=== PATIENT | male | born 1995 | race Caucasian/White ===

== ENCOUNTER 2022-07-18 16:34 | Emergency (ER) | payer BC, MEDICAID, SELFPAY ==
[2022-07-18 16:44] VITALS: BP 166/71; PULSE 71; RESP 16; TEMP 36.4; O2SAT 99; BMI 18.8
--- NOTE | 2022-07-18 16:50 | USR_ITS ---
PROCEDURE INFORMATION: Exam: US Scrotum Exam date and time: 07/18/2022 5:19 PM Age: 27 years old Clinical indication: Scrotum pain; Additional info: Testicular pain TECHNIQUE: Imaging protocol: Real-time ultrasound of the scrotum and contents with color Doppler and image documentation. COMPARISON: No relevant prior studies available. FINDINGS: Right testicle: 2 small echogenic foci likely representing microlithiasis.. Remainder of the right testicle is unremarkable. No torsion. Normal vascular flow. Left testicle: Normal. No mass. No torsion. Normal vascular flow. Epididymides: Normal. Scrotum/soft tissues: Normal. US/US scrotum [id number] IMPRESSION: 1. Normal left testicular ultrasound exam. 2. 2 small degenerative foci right testicle likely representing minimal microlithiasis
--- NOTE | 2022-07-18 16:56 | ED_ITS ---
HPI - Male Genitourinary General: Chief complaint: Urogenital-Male Stated complaint: testicular pain Time Seen by Provider: 07/18/22 16:56 History of Present Illness: Mr. Bowen is a 27-year-old gentleman presenting to the emergency department for testicular pain. He reports onset approximately 3 days ago and started while lifting. He reports essentially constant pain since then. Has difficulty describing if it is left or right. Denies urinary symptoms or other GI symptoms. Mild radiation to the suprapubic region. Intensity symptoms is moderate to severe. Course has persisted. No other specific changes in health, exacerbating, or alleviating factors identified. Onset (ago): day(s) Duration: constant Location: right testicle and left testicle Severity: moderate Quality: aching Relieving factors: none Exacerbating factors: palpation and movement Context: lifting Review of Systems General: Reports: 10 or more systems reviewed and unremarkable except in HPI and below PFSH ED PFSH: Medical History History of abdominal hernia Surgical History No significant past surgical history Physical Exam Const: COMMON NORMALS: alert GENERAL APPEARANCE: cooperative and well developed HENMT: COMMON NORMALS: normocephalic and atraumatic HEAD & SCALP: normocephalic and atraumatic Eye: COMMON NORMALS: conjunctivae normal CONJUNCTIVA: Yes conjunctivae normal SCLERA: sclerae normal Neck/C-Spine: COMMON NORMALS: supple GENERAL: Yes trachea midline Resp: COMMON NORMALS: clear to auscultation bilaterally EFFORT & INSPECTION: Yes able to speak in complete sentences AUSCULTATION: clear to auscultation bilaterally Cardio: COMMON NORMALS: regular rate and regular rhythm RATE: regular rate RHYTHM: regular rhythm GI: COMMON NORMALS: Soft to palpation PALPATION: Yes Soft to palpation, Yes Tenderness to palpation present (GI) (Mild suprapubic), No Guarding due to palpation present (GI) and No Rigid due to palpation : PENIS: normal penis TESTES: Yes testicular lie normal, Yes testicular tenderness (Left greater than right) Testicular tenderness laterality: bilateral, No testicular mass, Yes epididymal tenderness (Left) and No high- riding testicle OTHER: No skin lesions. No palpable hernias however there is tenderness in the left inguinal region. Extremity: GENERAL: Yes normal exam except as noted and No edema Neuro: COMMON NORMALS: moves all extremities SENSORIUM/ORIENTATION: Yes alert and No Orientation impaired Psych: COMMON NORMALS: mental status grossly normal and Normal thought process present THOUGHT PROCESS: Normal thought process present Course Vital Signs: Vital signs: Vital Signs Temperature 98.1 F 07/18/22 17:26 Pulse Rate 94 07/18/22 17:26 Respiratory Rate 24 H 07/18/22 17:26 Blood Pressure 149/99 07/18/22 17:26 Pulse Oximetry 95 07/18/22 17:26 Oxygen Delivery Me thod 07/18/22 17:26 MDM - Male Medical Decision Making 27-year-old gentleman presenting with 3-day history of testicular pain. Exam as above. Labs with no evidence of urinary tract infection. Scrotal ultrasound essentially unremarkable. Given continued symptoms and somewhat indeterminate physical exam in the context of provided clinical history of lifting CT pelvis warranted anticipated for hernia. There is bladder wall thickening though without evidence of urinary tract infection this is somewhat unclear in etiology. Patient proved with analgesia and antiemetic. Most likely etiology of patient's symptoms is unspecified testicular and groin pain, possibly musculoskeletal in nature. The results of ED evaluation were discussed with the patient including prescriptions and/or symptomatic cares (if applicable) including appropriate and responsible use, followup plan, and return precautions. The patient verbalized understanding and felt safe for discharge. Medical Records I reviewed the patient's medical records. Lab Data I reviewed the patient's lab results. Radiology Impressions Scrotum Ultrasound 07/18/22 16:50 IMPRESSION: 1. Normal left testicular ultrasound exam. 2. 2 small degenerative foci right testicle likely representing minimal microlithiasis Pelvis CT 07/18/22 17:47 IMPRESSION: 1. Diffuse, mild wall thickening of the bladder. In the correct clinical setting, this may suggest cystitis. Recommend correlation with laboratory findings. 2. Incidental/nonacute findings are listed in the report. Laboratory Results Urine Color Light yellow (Yellow) 07/18/22 17:20 Urine Appearance Clear (CLEAR) 07/18/22 17:20 Urine pH 7 (5-7) 07/18/22 17:20 Ur Specific [place] 1.015 (1.005-1.030) 07/18/22 17:20 Urine Protein Neg (Negative) 07/18/22 17:20 Urine Glucose (UA) Norm (Normal) 07/18/22 17:20 Urine Ketones Negative (Negative) 07/18/22 17:20 Urine Blood Neg (Negative) 07/18/22 17:20 Urine Nitrate Negative (Negative) 07/18/22 17:20 Urine Bilirubin Neg (Negative) 07/18/22 17:20 Urine Urobilinogen Neg mg/dL (Negative) 07/18/22 17:20 Ur Leukocyte Esterase Negative (Negative) 07/18/22 17:20 Discharge Plan Discharge Patient Disposition: Home Clinical Impression: Testicular pain Condition: Stable Prescriptions: New oxycodone 5 mg tablet 5 mg PO Q4H PRN (Reason: pain) Qty: 10 0RF No Action oxycodone 5 mg tablet 5 mg PO Q6H PRN (Reason: pain) Qty: 10 0RF Naprosyn 500 mg tablet 500 mg PO BID Qty: 14 0RF doxycycline hyclate 100 mg capsule 100 mg PO BID 10 Days Qty: 20 0RF ondansetron 4 mg tablet,disintegrating 4 mg PO Q6H PRN (Reason: nausea and vomiting) Qty: 10 0RF Discharge Orders: Discharge ED (Routine); Ordered 07/18/22 Ordered By: Dion Valenzuela Patient Instructions: Testicle Pain (ED), Opioid Safety Activity Restrictions/Additional Instructions: Thank you for visiting the emergency department. You were seen and evaluated for groin and testicular pain. The exact cause of your symptoms is unclear however may be related to muscle strain secondary to lifting. I would expect improvement in the next few days. You may use [id number] medications such as acetaminophen and ibuprofen for pain however please do not exceed the daily recommended dosage as listed on the packaging and please keep in mind that many namebrand medications contain the same active ingredients. Please avoid these medications if previously instructed to do so by another physician due to other underlying medical condition. Please follow-up with your primary care provider. Return to the emergency department for worsening symptoms or anything else that you are concerned about a feel needs emergency department evaluation. 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
[2022-07-18 17:14] VITALS: RESP 16; O2SAT 100
[2022-07-18] MEDS: fentaNYL 50 mcg/mL INJ 2mL IVP (17:14)
[2022-07-18 17:19] VITALS: BP 130/81; O2SAT 100
[2022-07-18 17:26] VITALS: BP 149/99; PULSE 94; RESP 24; TEMP 36.7; O2SAT 95
--- NOTE | 2022-07-18 17:47 | CTR_ITS ---
PROCEDURE INFORMATION: Exam: CT Pelvis With Contrast Exam date and time: 07/18/2022 6:25 PM Age: 27 years old Clinical indication: Scrotal; Additional info: L testicular/groin pain TECHNIQUE: Imaging protocol: Computed tomography of the pelvis with contrast. Sagittal and coronal reformatted images were created and reviewed. Radiation optimization: All CT scans at this facility use at least one of these dose optimization techniques: automated exposure control; mA and/or kV adjustment per patient size (includes targeted exams where dose is matched to clinical indication); or iterative reconstruction. Contrast material: OMNIPAQUE 350; Contrast volume: 95 ml; Contrast route: INTRAVENOUS (IV); Other protocol: This patient has received 0 known CTs and 0 known cardiac nuclear medicine studies in the 12 months prior to the current study. COMPARISON: US scrotum [id number] 07/18/2022 5:19 PM RADIATION DOSE METRICS: Total DLP (mGy-cm): 356.21 FINDINGS: Stomach and bowel: The visualized bowel is unremarkable. Appendix: The appendix is visualized and is unremarkable. No findings to suggest acute appendicitis. Intraperitoneal space: No free intraperitoneal air. No ascites. No loculated fluid collections to suggest an abscess. Lymph nodes: No lymphadenopathy.. Urinary bladder: Diffuse, mild wall thickening of the bladder. Reproductive: Nonspecific parenchymal calcifications in the prostate gland. Right and left testes are unremarkable as visualized. Bones/joints: No acute fracture. No dislocation. Normal bone mineralization. No joint effusion. Joint spaces are maintained. Soft tissues: No soft tissue swelling. No no loculated fluid collections to suggest an abscess. No radiopaque foreign body. CT/CT pelvis w con* [id number] IMPRESSION: 1. Diffuse, mild wall thickening of the bladder. In the correct clinical setting, this may suggest cystitis. Recommend correlation with laboratory findings. 2. Incidental/nonacute findings are listed in the report.
[2022-07-18] MEDS: ondansetron 2 mg/ML SDV 2 mL 4 MG IVP (18:17)
[2022-07-18 18:47] LABS: Add Urine Microscopic? NO; Charge for UA Resulting for Rev
[2022-07-18 18:51] LABS: Bilirubin Urine Neg (Negative); Blood Urine Neg (Negative); Glucose Urine UA Norm (Normal); Ketones Urine Negative (Negative); Leukocyte Esterase Urine Negative (Negative); Nitrate Urine Negative (Negative); Protein Urine Neg (Negative); Specific Gravity, Urine 1.015 (1.005-1.030); Urine Appearance Clear (CLEAR); Urine Color Light yellow (Yellow); Urobilinogen Urine Neg (Negative); pH Urine 7 (5-7)
== END 2022-07-18 20:03 | disposition home or self-care (01) ==
PROVIDERS: Emergency Provider Emergency Medicine
DX: N50.819 Testicular pain, unspecified (principal)
CPT/HCPCS: 72193; 76870; 81003; 87491; 87591; 96374; 96375; 99285; J2405; J3010; Q9967

== ENCOUNTER 2022-07-21 14:06 | Emergency (ER) | payer BC, MEDICAID, SELFPAY ==
[2022-07-21 14:13] VITALS: BP 139/80; PULSE 69; RESP 14; TEMP 36.6; O2SAT 99
--- NOTE | 2022-07-21 15:14 | USR_ITS ---
PROCEDURE INFORMATION: Exam: US Scrotum Exam date and time: 07/21/2022 4:04 PM Age: 27 years old Clinical indication: Scrotum pain; Additional info: Ongoing left testicular pain TECHNIQUE: Imaging protocol: Real-time ultrasound of the scrotum and contents with color Doppler and image documentation. COMPARISON: US scrotum [id number] 07/18/2022 5:19 PM FINDINGS: Right testicle: Normal. No mass. No torsion. Normal vascular flow. Small hydrocele. Left testicle: Normal. No mass. No torsion. Normal vascular flow. Small hydrocele. Epididymides: Normal. Scrotum/soft tissues: Normal. US/US scrotum [id number] IMPRESSION: Small bilateral hydroceles.
--- NOTE | 2022-07-21 15:35 | ED_ITS ---
HPI - Male Genitourinary General: Chief complaint: Urogenital-Male Stated complaint: testicular pain Time Seen by Provider: 07/21/22 14:57 History of Present Illness: This patient is a 27 year old presenting with ongoing left testicular pain. The symptoms started on Friday, and he was seen here on for these symptoms - and had a pelvic CT, scrotum US and UA. No infection. Imaging was unremarkable. Patient was given pain meds which helped the first day, but less the next day and hardly helping at all today. He has worse pain and now also has nausea with the symptoms which is new since prior. The pain is constant and nothing makes it better. He continues to denies urinary symptoms, discharge, swelling, masses, vomiting or changes in stool. He denies radiation of the pain to the back, leg, abdomen. No fever. He is very uncomfortable appearing. [facility], [facility] ED PFSH: Medical History History of abdominal hernia Surgical History No significant past surgical history Physical Exam Const: COMMON NORMALS: no acute distress, patient oriented x3, no limitations and alert GENERAL APPEARANCE: cooperative and comfortable OTHER: uncomfortable HENMT: HEAD & SCALP: normal to inspection FACE & SINUS: normal facial exam Eye: GENERAL EYE: appearance normal, both eyes and all related structures Neck/C-Spine: COMMON NORMALS: supple, no meningeal signs and no JVD Chest: COMMONS NORMALS: normal inspection of the chest Resp: COMMON NORMALS: normal respiratory effort, No use of accessory muscles and clear to auscultation bilaterally AUSCULTATION: clear to auscultation bilaterally Cardio: COMMON NORMALS: no JVD, regular rate, regular rhythm and No murmurs present (Cardio) RATE: regular rate RHYTHM: regular rhythm GI: COMMON NORMALS: Normal to inspection, nondistended, normoactive bowel sounds present, Soft to palpation and non-tender INSPECTION: Yes normal to inspection AUSCULTATION: Yes normoactive bowel sounds PALPATION: Yes Soft to palpation : MALE GROIN/PERINEUM EXAM: No erythema, No hernia and No inguinal lymphadenopathy PENIS: normal penis and circumcised SCROTUM: Yes testes descended bilaterally, Yes Scrotal tenderness present, No erythematous, No edematous, No scrotal swelling and No scrotal mass TESTES: Yes testicular lie normal, No testicular swelling, Yes testicular tenderness and No testicular mass Back/Pelvis: COMMON NORMALS: thoracic and lumbar spine normal to inspection Extremity: COMMON NORMALS: normal to inspection Neuro: COMMON NORMALS: patient oriented x3, moves all extremities, no focal motor deficits and no sensory deficits noted SENSORIUM/ORIENTATION: Yes alert MENINGEAL SIGNS: Yes no meningeal signs Psych: COMMON NORMALS: mental status grossly normal, cooperative and normal affect Skin: COMMON NORMALS: no rashes or lesions noted and turgor normal GENERAL SKIN EXAM: no rashes or lesions noted and turgor normal Course Vital Signs: Vital signs: Vital Signs Temperature 97.9 F 07/21/22 14:13 Pulse Rate 73 07/21/22 16:30 Respiratory Rate 16 07/21/22 17:24 Blood Pressure 141/71 07/21/22 16:30 Pulse Oximetry 98 07/21/22 17:24 Oxygen Delivery Me thod 07/21/22 14:13 MDM - Male Medical Decision Making Doubt testicular torsion with recent normal US, constant pain for 7 days with no abnormal appearance of the testicle. Question epididymitis, prostatitis, althou gh no fever. Will get labs, repeat US, manage pain with NSAIDs which he has not been taking. If work up is normal - may consider empiric antibiotics due to ongoing pain. US with small bilateral hydroceles - no evidence of torsion or epididymitis. WBC elevated. Pain continued in spite of meds. Exam remains benign. More pain meds given, zofran, doxycycline for potential infection not diagnosed - epididymitis, prostatitis - and urology follow up. Also work note as his job is physical. Dicsussed the possible diagnoses and return precautions. Lab Data 07/21/22 15:44 07/21/22 15:44 Radiology Impressions Scrotum Ultrasound 07/21/22 15:14 IMPRESSION: Small bilateral hydroceles. Laboratory Results WBC 15.1 10^3/uL (4.0-10.0) H 07/21/22 15:44 RBC 4.62 10^6/uL (4.1-5.3) 07/21/22 15:44 Hgb 15.2 g/dL (11.7-16.6) 07/21/22 15:44 Hct 45.2 % (42.0-52.0) 07/21/22 15:44 MCV 97.8 fl (80-94) H 07/21/22 15:44 MCH 32.9 pg (28.0-34.0) 07/21/22 15:44 MCHC 33.6 g/dL (30.0-36.0) 07/21/22 15:44 RDW 12.8 % (12.1-15.1) 07/21/22 15:44 Plt Count 249 10^3/cmm (130-400) 07/21/22 15:44 MPV 10.3 fL (7.4-10.4) 07/21/22 15:44 Neut % (Auto) 73.1 % 07/21/22 15:44 Lymph % (Auto) 18.4 % 07/21/22 15:44 [place] % (Auto) 6.5 % 07/21/22 15:44 Eos % (Auto) 1.1 % 07/21/22 15:44 Baso % (Auto) 0.4 % 07/21/22 15:44 Neut # (Auto) 11.04 10^3/uL (1.8-7.7) H 07/21/22 15:44 Lymph # (Auto) 2.8 10^3/uL (0.8-4.8) 07/21/22 15:44 [place] # (Auto) 1.0 10^3/uL (0.2-0.9) H 07/21/22 15:44 Eos # (Auto) 0.2 10^3/uL (0.0-0.8) 07/21/22 15:44 Baso # (Auto) 0.1 10^3/uL (0.0-0.1) 07/21/22 15:44 Nucleated RBC % (auto) 0 % 07/21/22 15:44 Nucleated RBCs # 0.0 /100WBC 07/21/22 15:44 Sodium 135 mmol/L (136-145) L 07/21/22 15:44 Potassium 3.9 mmol/L (3.5-5.1) 07/21/22 15:44 Chloride 98 mmol/L (98-107) 07/21/22 15:44 Carbon Dioxide 27 mmol/L (22-29) 07/21/22 15:44 Anion Gap 13.9 (5-19) 07/21/22 15:44 BUN 6 mg/dL (6-20) 07/21/22 15:44 Creatinine 0.6 mg/dL (0.7-1.2) L 07/21/22 15:44 GFR Calculation 162.9 mL/min (90-130) H 07/21/22 15:44 Glucose 87 mg/dL (65-115) 07/21/22 15:44 Calculated Osmolality 277 mOsm/kg (285-295) L 07/21/22 15:44 Calcium 9.7 mg/dL (8.5-10.5) 07/21/22 15:44 Total Bilirubin 0.4 mg/dL (0.15-1.2) 07/21/22 15:44 AST 200 U/L (0-40) H 07/21/22 15:44 ALT 63 U/L (0-41) H 07/21/22 15:44 Alkaline Phosphatase 73 U/L (40-130) 07/21/22 15:44 C-Reactive Protein 3.0 mg/L (0.0-4.9) 07/21/22 15:44 Total Protein 7.9 g/dL (6.6-8.7) 07/21/22 15:44 Albumin 4.7 g/dL (3.5-5.2) 07/21/22 15:44 Globulin 3.2 g/dL (1.3-4.6) 07/21/22 15:44 Urine Color Straw (Yellow) 07/21/22 15:44 Urine Appearance Sl hazy (CLEAR) A 07/21/22 15:44 Urine pH 7 (5-7) 07/21/22 15:44 Ur Specific [place] 1.010 (1.005-1.030) 07/21/22 15:44 Urine Protein Neg (Negative) 07/21/22 15:44 Urine Glucose (UA) Norm (Normal) 07/21/22 15:44 Urine Ketones Negative (Negative) 07/21/22 15:44 Urine Blood Neg (Negative) 07/21/22 15:44 Urine Nitrate Negative (Negative) 07/21/22 15:44 Urine Bilirubin Neg (Negative) 07/21/22 15:44 Urine Urobilinogen Norm mg/dL (Negative) 07/21/22 15:44 Ur Leukocyte Esterase Negative (Negative) 07/21/22 15:44 Urine RBC None /hpf (0-2) 07/21/22 15:44 Urine WBC None /hpf (0-5) 07/21/22 15:44 Ur Squamous Epith Cells None /hpf (0-5) 07/21/22 15:44 Amorphous Sediment 1+ /hpf 07/21/22 15:44 Urine Bacteria Trace /hpf (NONE) 07/21/22 15:44 Discharge Plan Discharge Patient Disposition: Home Clinical Impression: Testicular pain, Leukocytosis Condition: Stable Prescriptions: New oxycodone 5 mg tablet 5 mg PO Q6H PRN (Reason: pain) Qty: 10 0RF Naprosyn 500 mg tablet 500 mg PO BID Qty: 14 0RF doxycycline hyclate 100 mg capsule 100 mg PO BID 10 Days Qty: 20 0RF ondansetron 4 mg tablet,disintegrating 4 mg PO Q6H PRN (Reason: nausea and vomiting) Qty: 10 0RF No Action oxycodone 5 mg tablet 5 mg PO Q4H PRN (Reason: pain) Qty: 10 0RF Discharge Orders: Discharge ED (Routine); Ordered 07/21/22 Ordered By: Mandy Berger Referrals: Kenny Krishnamurthy MD [Physician] - 1-3 days Discharge Diet: Usual diet Discharge Activity: Increase activity as tolerated Patient Instructions: Opioid Safety, Pain Management Activity Restrictions/Additional Instructions: Return to the ED if worsening pain, swelling, vomiting, fever. Follow up with Dr. Krishnamurthy for further evaluation of your symptoms. Use the pain medicine as needed for pain. You may take acetaminophen - up to 1000 mg every 6 hours - with the pain medicines prescribed today. Take the antibiotic until gone or until instructed to stop. 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
[2022-07-21] MEDS: ondansetron 2 mg/ML SDV 2 mL 4 MG IVP ×2 (15:47→17:24)
[2022-07-21] MEDS: ketorolac 30 mg/mL INJ 15 MG IVP (15:47)
[2022-07-21 15:57] VITALS: BP 129/83; PULSE 71; RESP 16; O2SAT 99
[2022-07-21 16:00] VITALS: BP 111/83; PULSE 80; RESP 16; O2SAT 100
[2022-07-21 16:05] LABS: Basophils # 0.1 10^3/uL (0.0-0.1); Basophils % 0.4 %; Eosinophils # 0.2 10^3/uL (0.0-0.8); Eosinophils % 1.1 %; Hematocrit 45.2 % (42.0-52.0); Hemoglobin 15.2 g/dL (11.7-16.6); Lymphocytes # 2.8 10^3/uL (0.8-4.8); Lymphocytes % 18.4 %; Mean Corpuscular HGB Conc 33.6 g/dL (30.0-36.0); Mean Corpuscular Hemoglobin 32.9 pg (28.0-34.0); Mean Corpuscular Volume 97.8 fl (80-94); Mean Platelet Volume 10.3 fL (7.4-10.4); Monocytes % 6.5 %; Neutrophils # 11.04 10^3/uL (1.8-7.7); Neutrophils % 73.1 %; Nucleated Red Blood Cells % 0 %; Platelet Count 249 10^3/cmm (130-400); Red Blood Count 4.62 10^6/uL (4.1-5.3); Red Cell Distribution Width 12.8 % (12.1-15.1); White Blood Count 15.1 10^3/uL (4.0-10.0)
[2022-07-21 16:12] LABS: Alanine Aminotransferase 63 U/L (0-41); Albumin Level 4.7 g/dL (3.5-5.2); Alkaline Phosphatase 73 U/L (40-130); Anion Gap 13.9 (5-19); Aspartate Amino Transferase 200 U/L (0-40); Blood Urea Nitrogen 6 mg/dL (6-20); Calcium 9.7 mg/dL (8.5-10.5); Carbon Dioxide 27 mmol/L (22-29); Chloride 98 mmol/L (98-107); Creatinine Clr Calc Pharmacy 152.0158; Globulin 3.2 g/dL (1.3-4.6); Glomerular Filtration Rate 162.9 mL/min (90-130); Glucose 87 mg/dL (65-115); Osmolality Calculated 277 mOsm/kg (285-295); Potassium 3.9 mmol/L (3.5-5.1); Sodium 135 mmol/L (136-145); Total Bilirubin 0.4 mg/dL (0.15-1.2); Total Protein 7.9 g/dL (6.6-8.7)
[2022-07-21 16:20] LABS: Add Urine Microscopic? YES; Bilirubin Urine Neg (Negative); Blood Urine Neg (Negative); Glucose Urine UA Norm (Normal); Ketones Urine Negative (Negative); Leukocyte Esterase Urine Negative (Negative); Nitrate Urine Negative (Negative); Protein Urine Neg (Negative); Urine Appearance SL Hazy (CLEAR); Urine Color Straw (Yellow); Urobilinogen Urine Norm (Negative); pH Urine 7 (5-7)
[2022-07-21 16:21] LABS: Add Urine Culture? No; Amorphous Sediment Urine 1+ /hpf; Bacteria Urine TRACE /hpf
[2022-07-21 16:30] VITALS: BP 141/71; PULSE 73; O2SAT 96
[2022-07-21 17:24] VITALS: RESP 16; O2SAT 98
[2022-07-21] MEDS: morphine 4 mg/mL SDV 1 mL IVP (17:24)
[2022-07-21 17:47] VITALS: BP 136/85; PULSE 81; RESP 16; O2SAT 97
== END 2022-07-21 17:48 | disposition home or self-care (01) ==
PROVIDERS: Emergency Provider Emergency Medicine
DX: N50.812 Left testicular pain (principal); D72.829 Elevated white blood cell count, unspecified
CPT/HCPCS: 76870; 80053; 81001; 85025; 86140; 96374; 96375; 96376; 99285; J1885; J2270; J2405